=== PATIENT | female | born 1985 | race Caucasian/White ===

== ENCOUNTER → 2017-07-05 | Outpatient (CLI) | payer BC | END | disposition home or self-care (01) | LOC: C.LAB1850 16:39 | PROVIDERS: ATTEND Nurse Practitioner | DX: Z34.90 Encounter for supervision of normal pregnancy, unspecified, unspecified trimester (principal); Z3A.00 Weeks of gestation of pregnancy not specified ==

== ENCOUNTER 2017-08-11 14:12 | Emergency (ER) | payer BC ==
[~2017-08-11] VITALS: Ht 170.2 cm; Wt 75.9 kg
[2017-08-11 14:19] VITALS: TEMP 36.9; Ht 170.2 cm; Wt 75.9 kg
[2017-08-11] MEDS ORDERED: SODIUM CHLORIDE 0.9% 1000ML 1,000 ML IV STA (14:28)
--- NOTE | 2017-08-11 14:44 | EMERGENCY ROOM VISIT NOTE ---
History First contact with patient: 14:17 Chief Complaint: ED VAG BLEEDING Stated Complaint: MISCARRIAGE History of Present Illness The patient is a 32 year old female who presents to the Emergency Room with complaints of vaginal bleeding. The patient reports she is currently miscarrying. She saw Dr. Garcia of [facility] PERSONNEL RECORDS CLERK 2 days ago in the office for an ultrasound. She was told that the fetus did not have a heartbeat and had stopped growing around 8 weeks. She states that at that time, she had a small amount of vaginal spotting. Yesterday evening, her bleeding increased and was similar to a menstrual period. She states that today she has had continued bleeding and has been passing large clots. She has had abdominal cramping as well. She states that she was sitting in a warm bath this morning, which did help to make her more comfortable. Her was helping her drain the bath when she became dizzy, lightheaded, and had a syncopal episode. She reports a loss of consciousness lasted for 1-2 seconds. She is feeling slightly better now, but does state that she still feels very weak and tired. She has had one prior which went to term. She has never had a miscarriage in the past. The patient is blood type A+. Review of Systems A complete 10 point review of systems was reviewed with the patient with pertinent positives and negatives as per history of present illness. All else were negative. Social History Smoking Status: Former Smoker Current/Historical Medications Scheduled Multivit/Min/Iron/Fol Ac/Pren ( Vitamin), 1 TAB PO DAILY Physical Exam Vital Signs Date Time Temp Pulse Resp B/P (MAP) Pulse Ox O2 Delivery O2 Flow Rate FiO2 08/11/17 17:24 74 20 145/83 99 Room Air 08/11/17 15:36 77 20 126/73 99 Room Air 08/11/17 14:19 36.9 76 18 105/67 99 Room Air Physical Exam VITALS: Vitals are noted on the nurse's note and reviewed by myself. Vital signs stable. GENERAL: This is a 32-year-old female, in no acute distress, nondiaphoretic, well-developed well-nourished. SKIN: The skin was without rashes. There is no tenting of the skin. MOUTH: Mucous membranes moist. HEART: Regular rate and rhythm without murmurs gallops or rubs. LUNGS: Clear to auscultation bilaterally without wheezes, rales or rhonchi. ABDOMEN: Positive bowel sounds x 4. Soft, nontender to palpation. PELVIC: There is a moderate amount of dark red blood within the vaginal vault with a few large blood clots present. NEURO: Patient was alert and oriented to person place and time. Medical Decision & Procedures ER Provider Diagnostic Interpretation: LIMITED (US), TRANSVAGINAL CLINICAL HISTORY: 32 years-old Female presenting with vaginal bleeding, , , last menstrual period 05/16/2017, clinical concern for miscarriage. TECHNIQUE: Real-time grayscale and M-mode Doppler ultrasound imaging of the pelvis was performed first using a transabdominal probe and subsequently transvaginal for better characterization. COMPARISON: None. FINDINGS: Uterus: No gestational sac evident. Anteverted uterus, measuring 8.5 x 5.5 x 5.9 cm. Endometrium is heterogeneous in appearance and measures up to 15 mm in thickness with vascularity on color Doppler, likely indicating a decidual reaction. Cervix May contain hyperechogenic material. Right adnexa: Right ovary normal. Right ovary measures 3.5 x 1.7 x 2.3 cm. Normal color Doppler flow and arterial and venous waveforms within the ovarian parenchyma. Left adnexa: Left ovary contains a corpus luteum. Left ovary measures 2.7 x 3.7 x 2.4 cm. Normal color Doppler flow and arterial and venous waveforms within the ovarian parenchyma. Other: Trace free fluid, likely physiologic. IMPRESSION: Thickened endometrium consistent with a decidual reaction, however, no gestational sac identified. Heterogeneous material in the cervix likely represents blood products. This is consistent with a of unknown location and could be compatible with spontaneous miscarriage. Continued clinical and imaging follow-up with quantitative beta hCG trending recommended. Laboratory Results 08/11/17 14:35 Red Blood Count 3.62, Mean Corpuscular Volume 86.5, Mean Corpuscular Hemoglobin 28.7, Mean Corpuscular Hemoglobin Concent 33.2, Mean Platelet Volume 10.1, Neutrophils (%) (Auto) 58.3, Lymphocytes (%) (Auto) 33.3, Monocytes (%) (Auto) 6.8, Eosinophils (%) (Auto) 1.0, Basophils (%) (Auto) 0.4, Neutrophils # (Auto) 4.88, Lymphocytes # (Auto) 2.79, Monocytes # (Auto) 0.57, Eosinophils # (Auto) 0.08, Basophils # (Auto) 0.03 08/11/17 14:35 Test 08/11/17 14:35 White Blood Count 8.37 K/uL (4.8-10.8) Red Blood Count 3.62 M/uL (4.2-5.4) Hemoglobin 10.4 g/dL (12.0-16.0) Hematocrit 31.3 % (37-47) Mean Corpuscular Volume 86.5 fL (80-100) Mean Corpuscular Hemoglobin 28.7 pg (25-34) Mean Corpuscular Hemoglobin Concent 33.2 g/dl (32-36) Platelet Count 188 K/uL (130-400) Mean Platelet Volume 10.1 fL (7.4-10.4) Neutrophils (%) (Auto) 58.3 % Lymphocytes (%) (Auto) 33.3 % Monocytes (%) (Auto) 6.8 % Eosinophils (%) (Auto) 1.0 % Basophils (%) (Auto) 0.4 % Neutrophils # (Auto) 4.88 K/uL (1.4-6.5) Lymphocytes # (Auto) 2.79 K/uL (1.2-3.4) Monocytes # (Auto) 0.57 K/uL (0.11-0.59) Eosinophils # (Auto) 0.08 K/uL (0-0.5) Basophils # (Auto) 0.03 K/uL (0-0.2) RDW Standard Deviation 43.7 fL (36.4-46.3) RDW Coefficient of Variation 13.7 % (11.5-14.5) Immature Granulocyte % (Auto) 0.2 % Immature Granulocyte # (Auto) 0.02 K/uL (0.00-0.02) Prothrombin Time 10.5 SECONDS (9.0-12.0) Prothromb Time International Ratio 1.0 (0.9-1.1) Activated Partial Thromboplast Time 22.9 SECONDS (21.0-31.0) Partial Thromboplastin Ratio 0.9 Anion Gap 7.0 mmol/L (3-11) Est Creatinine Clear Calc Drug Dose 159.0 ml/min Estimated GFR () 144.7 Estimated GFR (Non- 124.9 BUN/Creatinine Ratio 16.8 (10-20) Calcium Level 7.7 mg/dl (8.5-10.1) Total Bilirubin 0.2 mg/dl (0.2-1) Aspartate Amino Transf (AST/SGOT) 9 U/L (15-37) Alanine Aminotransferase (ALT/SGPT) 18 U/L (12-78) Alkaline Phosphatase 48 U/L (45-117) Total Protein 6.6 gm/dl (6.4-8.2) Albumin 3.2 gm/dl (3.4-5.0) Globulin 3.4 gm/dl (2.5-4.0) Albumin/Globulin Ratio 0.9 (0.9-2) Human Chorionic Gonadotropin, Quant 3411 mIU/mL Medications Administered Medications (Trade) Dose Ordered Sig/Sarah Route Start Time Stop Time Status Last Admin Dose Admin Sodium Chloride 1,000 ml @ 999 mls/hr Q1H1M STAT IV 08/11/17 14:28 08/11/17 15:28 DC 08/11/17 14:28 999 MLS/HR Acetaminophen (Tylenol Tab) 1,000 mg NOW STAT PO 08/11/17 17:15 08/11/17 17:16 DC 08/11/17 17:23 1,000 MG ED Course The patient was evaluated as above. Labs were drawn and IV access was obtained. Pelvic ultrasound was performed and read by radiology as above. Case was discussed with Dr. Webber of [facility] PERSONNEL RECORDS CLERK. She feels the patient is stable for discharge and recommends follow-up in the office. Discharge instructions were reviewed with the patient. The patient verbalized understanding of my assessment and treatment plan and was discharged home in good condition. Medical Decision Differential diagnosis includes spontaneous , missed , among others. The patient is a 32-year-old female who presents today complaining of vaginal bleeding. Patient was told that her last PERSONNEL RECORDS CLERK appointment that the fetus had stopped growing at 8 weeks and she would eventually miscarriage. She chose to miscarry naturally if possible. She did have a syncopal episode today while in the bathtub which I feel was likely anxiety related. Patient is very well- appearing on exam. Pelvic exam did reveal a moderate amount of blood and several clots were passed. Patient felt better after IV hydration. Pelvic ultrasound showed no gestational sac and some blood products within the cervix consistent with spontaneous in progress. Case was discussed with the patient's PERSONNEL RECORDS CLERK who recommended close follow-up in the office as needed. The patient was reassured. She is slightly anemic with a hemoglobin of 10.4 but does report a history of anemia in the past. She was encouraged to return for worsening bleeding, weakness, syncope or other new/concerning symptoms. Based on the patient's presentation and work up, I feel the patient is stable for outpatient treatment. The patient was educated to return to the emergency department for any worsening of their current condition or new/concerning symptoms. She will follow up with PERSONNEL RECORDS CLERK. Medication Reconcilliation Current Medication List: was personally reviewed by me Blood Pressure Screening Patient's blood pressure: Normal blood pressure Impression Primary Impression: Spontaneous Departure Information Dispostion Home / Self-Care Condition GOOD Referrals Michael Luo MD (PCP) Ene Webber M.D. Patient Instructions My [facility] Additional Instructions Follow-up with PERSONNEL RECORDS CLERK next week as needed. Call for appointment. You may contact Dr. Webber this weekend if needed. She is security incident response specialist. For pain control, you can use the following [id number] medicines (if >12 yo): - Regular strength (325mg/tab) Tylenol (acetaminophen) 2 tabs every 4-6 hours as needed. Do not exceed 12 tablets in a 24 hour period. Avoid taking more than 4 grams (4000 mg) of Tylenol per day. This includes any other sources of acetaminophen you may take on a regular basis. - Regular strength (200 mg/tab) Advil (ibuprofen) 1-2 tabs every 4-6 hours as needed. Do not exceed a dose of 3200 mg per day. Rest and drink plenty of fluids. Return here as needed for any worsening bleeding, weakness, passing out or other new/concerning symptoms.
[2017-08-11 14:46] LABS: BASO % 0.4 %; BASO ABS # 0.03 K/uL (0-0.2); COMPLETE YES; HEMATOCRIT 31.3 % (37-47); IG% 0.2 %; LYMPH % 33.3 %; LYMPH ABS # 2.79 K/uL (1.2-3.4); MEAN CELL VOLUME 86.5 fL (80-100); MEAN CORPUSCULAR HEMOGLOBIN 28.7 pg (25-34); MEAN CORPUSCULAR HGB CONC 33.2 g/dl (32-36); MEAN PLATELET VOLUME 10.1 fL (7.4-10.4); MONO % 6.8 %; NEUT % 58.3 %; PLATELET COUNT 188 K/uL (130-400); RED BLOOD COUNT 3.62 M/uL (4.2-5.4); WHITE BLOOD COUNT 8.37 K/uL (4.8-10.8)
[2017-08-11] MEDS ORDERED: PRENTAB26 PO (14:50)
[2017-08-11 15:01] LABS: PARTIAL THROMBOPLASTIN RATIO 0.9; PROTHROMBIN TIME (PATIENT) 10.5 SECONDS (9.0-12.0)
[2017-08-11 15:03] LABS: BUN/CREATININE RATIO 16.8 (10-20); CALCIUM 7.7 mg/dl (8.5-10.1); CREATININE 0.54 mg/dl (0.60-1.20); POTASSIUM 3.3 mmol/L (3.5-5.1)
[2017-08-11 15:05] LABS: ALB/GLOB RATIO 0.9 (0.9-2)
--- NOTE | 2017-08-11 16:56 | DIAGNOSTIC IMAGING REPORT ---
LIMITED (US), TRANSVAGINAL CLINICAL HISTORY: 32 years-old Female presenting with vaginal bleeding, , , last menstrual period 05/16/2017, clinical concern for miscarriage. TECHNIQUE: Real-time grayscale and M-mode Doppler ultrasound imaging of the pelvis was performed first using a transabdominal probe and subsequently transvaginal for better characterization. COMPARISON: None. FINDINGS: Uterus: No gestational sac evident. Anteverted uterus, measuring 8.5 x 5.5 x 5.9 cm. Endometrium is heterogeneous in appearance and measures up to 15 mm in thickness with vascularity on color Doppler, likely indicating a decidual reaction. Cervix May contain hyperechogenic material. Right adnexa: Right ovary normal. Right ovary measures 3.5 x 1.7 x 2.3 cm. Normal color Doppler flow and arterial and venous waveforms within the ovarian parenchyma. Left adnexa: Left ovary contains a corpus luteum. Left ovary measures 2.7 x 3.7 x 2.4 cm. Normal color Doppler flow and arterial and venous waveforms within the ovarian parenchyma. Other: Trace free fluid, likely physiologic. IMPRESSION: Thickened endometrium consistent with a decidual reaction, however, no gestational sac identified. Heterogeneous material in the cervix likely represents blood products. This is consistent with a of unknown location and could be compatible with spontaneous miscarriage. Continued clinical and imaging follow-up with quantitative beta hCG trending recommended. Electronically signed by: Rodríguez Pugh M.D. 08/11/2017 4:55 PM Dictated Date/Time: 08/11/2017 4:48 PM
[2017-08-11] MEDS ORDERED: ACETAMINOPHEN 500 MG TAB PO STA (17:15)
[2017-08-11 17:24] VITALS: BP 145/83; PULSE 74; O2SAT 99
== END 2017-08-11 17:24 | disposition home or self-care (01) ==
LOC: EDBD 14:12 → C.EDB 14:14
DX: O03.9 Complete or unspecified spontaneous abortion without complication (principal); Z3A.00 Weeks of gestation of pregnancy not specified; Z87.891 Personal history of nicotine dependence

== ENCOUNTER → 2017-10-23 | Outpatient (CLI) | payer OTHER ==
[~2017-10-23] MED LIST: PRENTAB26 PO
== END | disposition home or self-care (01) ==
LOC: C.LAB1850 10:38
PROVIDERS: ATTEND Obstetrics & Gynecology
DX: O26.859 Spotting complicating pregnancy, unspecified trimester (principal)

== ENCOUNTER → 2017-10-25 | Outpatient (CLI) | payer OTHER | END | disposition home or self-care (01) | LOC: C.LAB1850 11:40 | PROVIDERS: ATTEND Obstetrics & Gynecology | DX: O26.859 Spotting complicating pregnancy, unspecified trimester (principal); Z3A.00 Weeks of gestation of pregnancy not specified ==

== ENCOUNTER → 2018-01-18 | Outpatient (CLI) | payer OTHER | END | disposition home or self-care (01) | LOC: C.PAPS 11:54 | PROVIDERS: ATTEND Obstetrics & Gynecology | DX: Z12.4 Encounter for screening for malignant neoplasm of cervix (principal) ==